=== PATIENT | female | born 1935 | race Caucasian/White ===

== ENCOUNTER → 2016-08-16 | Outpatient (CLI) | payer MEDICARE, OTHER ==
[~2016-08-16] MED LIST: ALPR0.2563 PO; DIPH25CA84 PO; HYDR-2164 PO; HYDR-4246 PO; OMEP20CA81 PO; ONDA4TAB4 PO; SOTA80TA42 PO; TAMO20TA4 PO; VIT1CAPS21 PO; WARF2TAB51 PO
--- NOTE | 2016-08-16 16:42 | DI ---
Indication: ITS.REASON: M79.605 PAIN IN LEFT LEG; M79.89 Other specified soft tissue diso PROCEDURE: US VENOUS DUPLEX, LOWER EXT LT: Encounter: Initial Comparison: November 29, 2014 Technique: Color Doppler duplex and grayscale sonographic imaging of the left lower extremity was performed. Findings: There is no evidence for acute deep venous thrombosis in the left thigh. Specifically, serial graded compression was performed from the inguinal ligament to the popliteal bifurcation, on the left thigh, demonstrating appropriate compressibility of the deep venous system. In addition, color and pulsed Doppler demonstrate appropriate spontaneous flow, variation with respiration, and augmentation with calf compression. At the ankle, normal flow is identified in the posterior tibial veins; these vessels are also normal in caliber. Impression: No evidence of acute DVT in the left lower limb. .
== END ==
LOC: IMA 15:32
PROVIDERS: ATTEND Orthopaedic Surgery
DX: M79.605 Pain in left leg (principal); M79.89 Other specified soft tissue disorders